=== PATIENT | male | born 1960 | race Caucasian/White ===

== ENCOUNTER 2018-01-12 04:56 | Emergency (ER) | payer BC ==
[~2018-01-12] VITALS: Ht 172.7 cm; Wt 90.8 kg
[2018-01-12 05:42] LABS: APPEARANCE CLEAR ((CLEAR)); BILIRUBIN NEGATIVE; BLOOD LARGE; COLOR YELLOW ((YELLOW)); GLUCOSE (STRIP) NEGATIVE; KETONES NEGATIVE; LEUKOCYTES NEGATIVE; NITRITE NEGATIVE; PROTEIN (STRIP) 30; SPECIFIC GRAVITY 1.026 (1.000-1.030); UROBILINOGEN 0.2 MG/DL (0.2-1.0)
[2018-01-12 05:46] LABS: BACTERIA RARE /HPF; CALCIUM OXALATE CRYSTALS 1+ /HPF; EPITHELIAL CELLS NONE SEEN /HPF; MUCUS 2+ /LPF; RED BLOOD CELLS TNTC /HPF (0-5); UCUL ADDED? YES; WHITE BLOOD CELLS 0-5 /HPF (0-5)
[2018-01-12 05:58] LABS: HEMATOCRIT 39.8 % (38.0-50.0); HEMOGLOBIN 14.5 G/DL (12.5-16.6); MCH 31.3 PG (29.0-34.0); MCHC 36.4 G/DL (30.0-36.0); PLATELET COUNT 197 K/uL (156-360); RBC DIS.WIDTH-CV 13.2 % (11.8-14.6); RBC DIS.WIDTH-SD 41.2 % (39-53); RED BLOOD COUNT 4.63 M/uL (4.00-5.50); WHITE BLOOD COUNT 6.8 K/uL (4.1-10.2)
[2018-01-12 06:06] LABS: CHLORIDE 109 mEq/L (99-109); POTASSIUM 3.7 mEq/L (3.7-5.4); SODIUM 137 mEq/L (136-147)
[2018-01-12 06:08] LABS: GLUCOSE 147 mg/dL (70-99)
[2018-01-12 06:12] LABS: CREATININE 0.9 mg/dL (0.6-1.3); GFR ESTIMATE (CALCULATED) > 59 mL/min/ (58.99-99999)
[2018-01-12 06:13] LABS: UREA NITROGEN (BUN) 19 mg/dL (9-23)
[2018-01-12] MEDS ORDERED: FLOMAX0.4 MG PO (06:13)
[2018-01-12] MEDS ORDERED: PERCOCET 5/31 TABLET PO (06:13)
[2018-01-12 06:38] VITALS: BP 140/83
== END 2018-01-12 06:37 | disposition home or self-care (01) ==
LOC: EME 04:56
PROVIDERS: Emergency Medicine
DX: N20.1 Calculus of ureter (principal); I10 Essential (primary) hypertension; Z87.442 Personal history of urinary calculi
CPT/HCPCS: 74176; 80048; 81003; 85027; 87086; 99281; 99284; J1885; J2405; J7030